=== PATIENT | female | born 1950 | race Caucasian/White ===

== ENCOUNTER 2016-09-19 01:18 | Inpatient (IN) | payer BC, OTHER ==
[~2016-09-19 01:18] MED LIST: ACCUNEB INH; ALLERGY SHOTS SQ; AMB10 PO; AMBIEN CR12.5 MG PO; ASAB PO; AT25 PO; CARD120 PO; CLARIT10 PO; CLOBETASOL0.051 V; CRESTOR20 MG PO; DITRO5 PO; FOLIC PO; K500 PO; LIPITOR40 PO; LORTAB10 PO; LYRICA100 MG PO; LYRICA75 PO; MAX25 PO; NAP500 PO; NEXIUM40 PO; NORCO1 TA2 PO; NORV25 PO; PERCOCET1 TA4 PO; PRAVAC PO; PROAIR HFA INH; SPIRIVA INH; TOF25 PO; TOPAMAX200 MG PO; TRILEP300 PO; TRILEPTAL600 MG PO; VITAMIN D31000 UNIT PO; XANAX1 MG PO; ZOL100 PO
[2016-09-19] MEDS ORDERED: VOLT75 PO (12:46)
[2016-09-20] MEDS ORDERED: PCET PO (17:42)
== END 2016-09-20 18:08 | disposition home or self-care (01) | DRG 301 ==
LOC: 5NO 01:18
PROC: 3E053GC Introduction of Other Therapeutic Substance into Peripheral Artery, Percutaneous Approach (ICD-10-PCS; principal; 2016-09-19)
DX: I72.4 Aneurysm of artery of lower extremity (principal); J44.9 Chronic obstructive pulmonary disease, unspecified; I10 Essential (primary) hypertension; G47.33 Obstructive sleep apnea (adult) (pediatric); E78.5 Hyperlipidemia, unspecified; E11.9 Type 2 diabetes mellitus without complications; Y84.0 Cardiac catheterization as the cause of abnormal reaction of the patient, or of later complication, without mention of misadventure at the time of the procedure
CPT/HCPCS: 36002; 76942; 93926; A9270-GY; G0378; J1170; J2405